=== PATIENT | male | born 1935 | race Caucasian/White ===

== ENCOUNTER 2017-03-31 10:37 | Observation (INO) | payer BC ==
--- NOTE | ~2017-03-31 | DS ---
Discharge Summary [facility] [address] [facility] [place]. [address] NAME: RICHA LUX : 35 STATUS : DIS Michel PAT#: [id number] AGE: 82 ADM/REG DATE : 03/31/17 MR#: [id number] REPORT SERV DATE: 04/02/17 DICTATED BY: JR. CABRAL WILLIAM JOHN DATE: 04/01/17 REPORT STATUS : Draft TRANSCRIBED BY: MODL DATE: 04/01/17 ADMISSION DATE: 03/31/2017 DISCHARGE DATE: 04/01/2017 DISCHARGE DIAGNOSES: Include: 1. 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 2. Carotid stenosis with category 3 disease on the right, category 1 on the left. 3. Uncontrolled hypertension. 4. Benign prostatic hypertrophy. 5. Peripheral vascular disease. 6. Coronary artery disease with history of bypass grafting. 7. Acute kidney injury. OPERATIONS, PROCEDURES, AND TREATMENTS: Include: 1. Echocardiogram done on 03/31/2017, which showed normal left ventricular size with preserved ejection fraction of 50% to 55% with mild diastolic dysfunction, moderate left atrial enlargement, normal right ventricular size and function. There is aortic valve sclerosis without stenosis and a negative bubble study. 2. CT of the brain done on 03/31/2017 showed atrophy without evidence of acute infarct. There were some deep white matter changes, likely old. 3. Carotid flow study done on 03/31/2017, which showed category 3 disease on the right, category 1 disease on the left. 4. Chest x-ray done on 03/31/2017, which showed clear lungs. 5. MRI of the brain done on 03/31/2017, which showed completed TIA/ acute punctate lacunar infarct in the right basal ganglia. CONSULTING PHYSICIAN: Dr. Krause of Neurology. DISCHARGE MEDICATIONS: Not applicable as the patient left against medical advice. HOSPITAL COURSE: The patient was an 82-year-old male, reportedly in good health. He has been working outside [place]. At around 4 o'clock in the morning, felt leg cramp. He woke up, left side of his face was drooped. Speech was somewhat dysarthric. He called his son, who brought him to the hospital. He denied any weakness or difficulty walking. On initial exam, blood pressure was 182/84, heart rate 59, temperature 97.1, respiratory rate of 16. Exam was remarkable for left facial droop with mild asthenia of the face. No peripheral symptoms, otherwise normal. Initial CT is as detailed above. For complete details, see Dr. Christian's excellent dictated history and physical. The patient was admitted to the hospital for suspected stroke. He was seen by Neurology; recommended MRI, echocardiogram, MRA of the head, carotid flow study. The patient was absolutely adamant that he was going to go home today. I saw the patient this morning. The MRI, carotid flow study, and echocardiogram were all pending at that time. I discussed the case with Neurology, who agreed to come and see him in the afternoon. In the interim, the above results were completed. We discussed at length with the patient the risks of going home. We felt it was imperative that the patient have further workup and evaluation by Discharge Summary [address] [address] NAME: RICHA LUX : 35 STATUS : DIS Michel PAT#: [id number] AGE: 82 ADM/REG DATE : 03/31/17 MR#: [id number] REPORT SERV DATE: 04/02/17 DICTATED BY: JR. CABRAL WILLIAM JOHN DATE: 04/01/17 REPORT STATUS : Draft TRANSCRIBED BY: TERESA DATE: 04/01/17 Vascular Surgery. The patient declined any further care and chose to sign out against medical advice. I personally saw the patient 3 times today and Neurology saw him once. Unfortunately, the patient left against medical advice. He plans to see Dr. Martin of Vascular Surgery on Monday. For discharge exam and laboratory, please see the daily progress note. This discharge took greater than 30 minutes for patient encounter, coordination of care, and documentation. DICTATED BY: Дмитрий Cabral Jr, MD WLAUREN/TERESA Дмитрий Cabral Jr, MD / [id number] CC: Дмитрий Cabral Jr, MD
--- NOTE | ~2017-03-31 | HP ---
History And Physical [id number] [place]. [address] NAME: RICHA LUX : 35 STATUS : ADM Michel PAT#: [id number] AGE: 82 ADM/REG DATE : 03/31/17 MR#: [id number] REPORT SERV DATE: 03/31/17 DICTATED BY: TIMA CHRISTIAN DATE: 03/31/17 REPORT STATUS : Draft TRANSCRIBED BY: MODMarcy DATE: 03/31/17 DATE OF ADMISSION: 03/31/2017 CHIEF COMPLAINT: Face drooping. HISTORY OF PRESENT ILLNESS: The patient is an 82-year-old white male, who is reportedly in good health. He has currently been working outside of [place]. He said around 4 o'clock he felt a leg cramp and he had to wake up. When he woke up, he noticed that the left side of his face was drooping and his speech was somewhat dysarthric. He called his son and his son brought him to the hospital. He denied any weakness in the upper extremity nor in the lower extremity or the torso. He said he was able to walk without any difficulty. He denied any nausea or vomiting. He denied any palpitations, chest pain, or shortness of breath. He denied any headaches or visual disturbance. When he came to the emergency room, he was noted to have the above complaint. CT done in the emergency room was negative for any acute bleed, so Medicine Service was asked to see the patient and evaluate the patient. He is already outside the window of using tPA, so Neurology and Stroke Alert was not called. REVIEW OF SYSTEMS: A 14-point review of systems is otherwise negative. 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 PAST SURGICAL HISTORY: Significant for quadruple coronary artery bypass graft and lumbar spine surgery. He has had bilateral carotid endarterectomy. ALLERGIES: NO KNOWN DRUG ALLERGIES. HOME MEDICATIONS: Lisinopril 2.5 mg once daily, Lozol 1.5 mg once daily, Coreg 6.25 mg twice daily, Cardura 4 mg once daily, aspirin 81 mg once daily, Neurontin two tablets once daily, vitamin C 50, hydrocodone 5/325 one tablet every six hours p.r.n., and hydrocortisone ointment. SOCIAL HISTORY: He occasionally chews tobacco and occasionally uses alcohol. He does not use any illicit substances. 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 FAMILY HISTORY: Father with throat cancer. Brother with throat cancer. Mother with high blood pressure. No history of CVA in the family. PHYSICAL EXAMINATION: GENERAL: White male, lying on the gurney, appears to be in no obvious respiratory distress. He is awake and alert. He is oriented. VITAL SIGNS: Blood pressure 182/84, pulse of 59, temp of 97.1, respirations of 16, saturation of 96% on room air. HEENT: Head is normocephalic, atraumatic. Pupils are equal, round, and reactive to light. Extraocular muscles are intact. Sclerae are anicteric. Conjunctivae are normal. History And Physical [address] [address] NAME: RICHA LUX : 35 STATUS : ADM Michel PAT#: [id number] AGE: 82 ADM/REG DATE : 03/31/17 MR#: [id number] REPORT SERV DATE: 03/31/17 DICTATED BY: TIMA CHRISTIAN. DATE: 03/31/17 REPORT STATUS : Draft TRANSCRIBED BY: TERESA DATE: 03/31/17 Oropharynx without lesion. Tongue protrusion is midline. Uvula midline. Left facial droop is noted. He is able to raise his left eyebrow without any difficulty. He is also able to close his left eye without any difficulty. NECK: Supple. No evidence of jugular venous distention. No carotid bruits or thyromegaly appreciated. Bilateral CEA scars are noted. HEART: Regular rate and rhythm. No murmurs, rubs, or gallops. PMI nondisplaced. LUNGS: Clear to auscultation both anteriorly and posteriorly, without rales, rhonchi, wheezing, or consolidation. ABDOMEN: Soft, nontender, good bowel sounds. No rebound or guarding. No organomegaly. EXTREMITIES: Without cyanosis, clubbing, or edema. NEUROLOGIC: Except for the left facial droop and mild asthenia of the face, he has no peripheral symptoms. Strength is equal and symmetrical in both upper and lower extremities proximally and distally. Proprioception is normal. Normal graphesthesia is noted as well. Deep tendon reflexes are normal as well. LABORATORY DATA: Sodium 137, potassium 3.8, chloride 103, bicarb 29, BUN 32, creatinine 1.75, and glucose is 115. Liver function studies are normal. Proteins are normal. Troponin is less than 0.02. White count is 5.6, hemoglobin of 13.3, hematocrit of 40, platelet count is 126,000. No left shift. PT/INR and PTT are all normal. IMAGING: Portable chest x-ray: Lungs are clear of acute pathology. CT of brain noncontrasted: Atrophy, no evidence of an acute infarction seen here. There are some deep white matter changes and basal ganglia changes, which are probably old. If symptoms persist, recommend a followup MRI. Echocardiogram done on March 15 shows a borderline left ventricular systolic function of 46%, borderline left ventricular hypertrophy, left ventricular diastolic dysfunction with left atrial dilatation, right ventricle systolic function borderline reduced. No significant valvular dysfunction and no significant change when compared to 08/10/2012. EKG is still pending. IMPRESSION: 1. Left-sided facial CVA, acute, possible embolic in nature given the history of cardiac arrhythmias. Recent echo was negative, however, a repeat echo must be done to evaluate development of a thrombus. 2. Hypertension. 3. Cardiac arrhythmia. 4. Benign prostatic hypertrophy. 5. Peripheral vascular disease. 6. Coronary artery disease, status post CABG. 7. Acute kidney injury with a creatinine of 1.7. PLAN: The patient will be admitted. Aspirin and Lipitor will be started. Consider using Aggrenox if there are significant findings on the intracranial MRA. Neurology consultation will be obtained. MRI and MRA of the brain, telemetry will be used. IV fluids will be given, monitor creatinine again in the morning. Physical therapy consultation will probably not be needed because of patient's low needs for rehab. Speech therapy consultation, however, would be appropriate for assessment because of the significant left facial droop. The patient remains a full code. History And Physical [address] [place]. [address] NAME: RICHA LUX : 35 STATUS : ADM Michel PAT#: [id number] AGE: 82 ADM/REG DATE : 03/31/17 MR#: [id number] REPORT SERV DATE: 03/31/17 DICTATED BY: TIMA CHRISTIAN DATE: 03/31/17 REPORT STATUS : Draft TRANSCRIBED BY: TERESA DATE: 03/31/17 SV/MODL Tima Christian M.D. / [id number] CC: Cesia Wiseman MD UNKNOWN Дмитрий Doran M.D.
--- NOTE | ~2017-03-31 | CN ---
Consultation Report [facility] [address] [place]. [address] NAME: RICHA LUX : 35 STATUS : DIS Michel PAT#: [id number] AGE: 82 ADM/REG DATE : 03/31/17 MR#: [id number] REPORT SERV DATE: 04/01/17 DICTATED BY: TAMARA GIORDANO DATE: 04/01/17 REPORT STATUS : Draft TRANSCRIBED BY: MODMarcy DATE: 04/01/17 DATE OF CONSULTATION: 03/31/2017 CONTINUATION: PAST MEDICAL HISTORY: Remote smoking and occasional alcohol. MEDICATIONS: Vitamin C 500 mg daily, aspirin 81 mg daily, vitamin B tablet one daily, Coreg 6.25 mg twice a day, Cardura 4 mg at bedtime, Neurontin 300 mg twice a day, [place]ilo 5/325 mg q.6 hours p.r.n., hydrocortisone ointment topically daily, indapamide 1.25 mg daily, and Prinivil 2.5 mg at bedtime. ALLERGIES: CODEINE AND PLAVIX. SOCIAL HISTORY: The patient is . He has two sons. He also has some stepsons and daughters. 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 He is a remote smoker. Occasionally drinks alcohol. FAMILY HISTORY: The patient's mother . She had hypertension. Dad from throat cancer. He has one brother who has throat cancer. REVIEW OF SYSTEMS: Please refer to HPI. PHYSICAL EXAMINATION: GENERAL: The patient is an 82-year-old male who is alert, he is oriented x4, communicates appropriately. He is dysarthric; however, he does not have any anomia (receptive or expressive). NEUROLOGICAL: Pupils are 3 mm. PERRLA. Cranial nerves 2 through 12 are intact except he does have a significant left facial droop. Obqzxz-hm-zvon, no ataxia. Vojw-ny-iydt, no ataxia. He does have a slight pronator drift on the left compared to the right. No tremor. No asterixis or dysmetria. Upper extremity strength is 5/5 bilaterally. Upper DTRs 1+ bilaterally. No reported sensory deficits. Lower extremity strength 5/5 bilaterally. Patellar reflexes 1+ bilaterally. Downgoing toes. No reported sensory deficits. Gait is without ataxia. He cannot tandem, but Romberg is negative. NECK: No carotid bruits, JVD, or thyromegaly. CHEST: Lung sounds are clear. CARDIAC: Regular rate and rhythm. LABORATORY DATA: CBC is normal. BMP relatively normal, but his BUN is 32 and creatinine 1.75. INR 1.2. Chest x-ray, no acute changes. CT of the brain, no acute changes. NIH stroke scale of 2. ASSESSMENT/PLAN: 1. Probable stroke in the right middle cerebral artery territory with resultant left Consultation Report [address] [address] NAME: RICHA LUX : 35 STATUS : DIS Michel PAT#: [id number] AGE: 82 ADM/REG DATE : 03/31/17 MR#: [id number] REPORT SERV DATE: 04/01/17 DICTATED BY: TAMARA GIORDANO DATE: 04/01/17 REPORT STATUS : Draft TRANSCRIBED BY: TERESA DATE: 04/01/17 facial droop and dysarthria. At this point, the patient's aspirin will be stopped. He will be placed on Aggrenox one b.i.d. He is intolerant to Plavix. He will be placed on Lipitor 80 mg at bedtime, and MRI of the brain without gadolinium will be ordered. He will also undergo a carotid duplex study and an echocardiogram if he has not had one recently. Speech Therapy will be consulted and Case Management. Additional lab work will be drawn. 2. History of arrhythmia, type unknown. We will obtain records from Dr. Doran's office and progress from there. If he does have a history of atrial fibrillation, we certainly will consider stopping the Aggrenox and placing him on Eliquis if indeed the patient has had a stroke as evidenced by the MRI. Thank you again for including us in consultation. DORCAS/TERESA Tamara Giordano DNP, [facility] / [id number] CC: Дмитрий Cabral Jr, MD William Warren, M.D. Iwayemi O. Olayeye, MD
--- NOTE | ~2017-03-31 | CN ---
Consultation Report [facility] [address] [place]. [address] NAME: RICHA LUX : 35 STATUS : DIS Michel PAT#: [id number] AGE: 82 ADM/REG DATE : 03/31/17 MR#: [id number] REPORT SERV DATE: 04/03/17 DICTATED BY: TAMARA GIORDANO DATE: 04/01/17 REPORT STATUS : Draft TRANSCRIBED BY: MODL DATE: 04/01/17 CONSULTATION DATE OF CONSULTATION: 03/31/2017 REASON FOR CONSULTATION: Probable stroke. PRIMARY CARE PHYSICIAN: The patient's PCP is in [place], [place]. HOSPITALIST: Dr. Wiseman. CONTRACT PROCESSOR: Dr. Doran. HISTORY OF PRESENT ILLNESS: The patient is an 82-year-old male, who awoke at 3 a.m. in the morning because his legs were cramping. He walked into the bathroom and noticed that he had a significant left facial droop. He also noticed that his speech was slurred. He was concerned that he may have had a stroke, so he came to [facility]'s emergency department for further evaluation and treatment. He was evaluated and again it was thought that he may have had an acute stroke. Consequently, he was admitted to [facility], which is the stroke unit. PAST MEDICAL HISTORY: Cardiac dysrhythmia (probable atrial fibrillation), BPH, peripheral vascular disease, coronary artery disease, and neuropathy. PAST SURGICAL HISTORY: Coronary artery bypass grafting. HOME MEDICATION LIST: Includes vitamin C 500 mg daily, aspirin 81 mg daily, vitamin B one tablet daily, Coreg 6.25 mg b.i.d., Cardura 4 mg at bedtime, Neurontin 300 mg b.i.d., [place] 5/325 mg q.6 hours p.r.n., hydrocortisone ointment 1% applied topically daily, indapamide 1.25 mg daily, and Prinivil bedtime. MEDICATIONS: Vitamin C 500 mg daily, aspirin 81 mg daily, vitamin B tablet one daily, Coreg 6.25 mg twice a day, Cardura 4 mg at bedtime, Neurontin 300 mg twice a day, [place] 5/325 mg q.6 hours p.r.n., hydrocortisone ointment topically daily, indapamide 1.25 mg daily, and Prinivil 2.5 mg at bedtime. ALLERGIES: CODEINE AND PLAVIX. SOCIAL HISTORY: The patient is . He has two sons. He also has some stepsons and daughters. 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 He is a remote smoker. Occasionally drinks alcohol. FAMILY HISTORY: The patient's mother . She had hypertension. Dad from throat cancer. He has one brother who has throat cancer. Consultation Report [address] [place]. [address] NAME: RICHA LUX : 35 STATUS : DIS Michel PAT#: [id number] AGE: 82 ADM/REG DATE : 03/31/17 MR#: [id number] REPORT SERV DATE: 04/03/17 DICTATED BY: TAMARA GIORDANO DATE: 04/01/17 REPORT STATUS : Draft TRANSCRIBED BY: TERESA DATE: 04/01/17 REVIEW OF SYSTEMS: Please refer to HPI. PHYSICAL EXAMINATION: GENERAL: The patient is an 82-year-old male who is alert, he is oriented x4, communicates appropriately. He is dysarthric; however, he does not have any anomia (receptive or expressive). NEUROLOGICAL: Pupils are 3 mm. PERRLA. Cranial nerves 2 through 12 are intact except he does have a significant left facial droop. Kgjpti-no-tfkj, no ataxia. Kndf-oi-khtv, no ataxia. He does have a slight pronator drift on the left compared to the right. No tremor. No asterixis or dysmetria. Upper extremity strength is 5/5 bilaterally. Upper DTRs 1+ bilaterally. No reported sensory deficits. Lower extremity strength 5/5 bilaterally. Patellar reflexes 1+ bilaterally. Downgoing toes. No reported sensory deficits. Gait is without ataxia. He cannot tandem, but Romberg is negative. NECK: No carotid bruits, JVD, or thyromegaly. CHEST: Lung sounds are clear. CARDIAC: Regular rate and rhythm. LABORATORY DATA: CBC is normal. BMP relatively normal, but his BUN is 32 and creatinine 1.75. INR 1.2. Chest x-ray, no acute changes. CT of the brain, no acute changes. NIH stroke scale of 2. ASSESSMENT/PLAN: 1. Probable stroke in the right middle cerebral artery territory with resultant left facial droop and dysarthria. At this point, the patient's aspirin will be stopped. He will be placed on Aggrenox one b.i.d. He is intolerant to Plavix. He will be placed on Lipitor 80 mg at bedtime, and MRI of the brain without gadolinium will be ordered. He will also undergo a carotid duplex study and an echocardiogram if he has not had one recently. Speech Therapy will be consulted and Case Management. Additional lab work will be drawn. 2. History of arrhythmia, type unknown. We will obtain records from Dr. Doran's office and progress from there. If he does have a history of atrial fibrillation, we certainly will consider stopping the Aggrenox and placing him on Eliquis if indeed the patient has had a stroke as evidenced by the MRI. Thank you again for including us in consultation. DORCAS/TERESA Tamara Giordano DNP, [facility] / [id number] Consultation Report [address] [address] NAME: RICHA LUX : 35 STATUS : DIS Michel PAT#: [id number] AGE: 82 ADM/REG DATE : 03/31/17 MR#: [id number] REPORT SERV DATE: 04/03/17 DICTATED BY: TAMARA GIORDANO DATE: 04/01/17 REPORT STATUS : Draft TRANSCRIBED BY: TERESA DATE: 04/01/17 CC: Дмитрий Cabral Jr, MD
[2017-03-31 10:57] LABS: BASOPHILS 0.4 %; BASOPHILS ABSOLUTE 0.02 10/3/uL (0.0-0.16); EOSINOPHILS 2.1 %; EOSINOPHILS ABSOLUTE 0.12 10/3/uL (0.0-0.53); ER CBC TAT 0 Hrs 03 Mins; HEMATOCRIT 40.2 % (40.0-51.0); HEMOGLOBIN 13.3 g/dL (13.6-17.8); LYMPHOCYTES 13.5 %; LYMPHOCYTES ABSOLUTE 0.76 10/3/uL (0.67-4.30); MEAN CORPUS HGB CONC 33.1 g/dL (32.0-36.0); MEAN CORPUSCULAR HEMOGLOB 28.5 pg (26.0-34.0); MEAN CORPUSCULAR VOLUME 86.1 fL (80-100); MEAN PLATELET VOLUME 10.5 fL (9.2-13.0); MONOCYTES 6.8 %; MONOCYTES ABSOLUTE 0.38 10/3/uL (0.21-1.20); NEUTROPHILS 77.2 %; NEUTROPHILS ABSOLUTE 4.33 10/3/uL (2.02-8.40); RED CELL COUNT 4.67 10/6/uL (4.7-6.1); WHITE BLOOD CELLS 5.6 10/3/uL (4.5-10.5)
[2017-03-31 10:58] LABS: MANUAL DIFF NO %; PLATELET COUNT 126 10/3/uL (150-400)
[2017-03-31 11:04] LABS: INTERNATIONAL NORMAL RATI 1.2 UNITS (-); PARTIAL THROMBO TIME 34.3 SEC (22.5-37.2); PROTIME (NOT ORD) 14.6 SEC (12.0-14.5)
[2017-03-31 11:14] LABS: ALBUMIN 3.6 G/DL (3.5-5.0); ALKALINE PHOSPHATASE 62 U/L (45-117); BUN (BLOOD UREA NITROGEN) 32 MG/DL (6-23); CALCIUM, SERUM 8.8 MG/DL (8.5-10.4); CHLORIDE, SERUM 103 MMOL/L (96-112); CO2 (CARBON DIOXIDE) 29 MMOL/L (24-34); CREATININE 1.75 MG/DL (0.70-1.30); GFR AFRICAN AMERICAN 41 ML/MIN (>=60); GFR NON AFRICAN AMERICAN 35 ML/MIN (>=60); GLOBULIN 3.5 G/DL (2.5-4.1); GLUCOSE, SERUM 115 MG/DL (60-99); POTASSIUM, SERUM 3.8 MMOL/L (3.5-5.3); SGOT(AST) 24 U/L (5-40); SGPT(ALT) 24 U/L (5-65); SODIUM, SERUM 137 MMOL/L (135-148); TOTAL BILIRUBIN 0.5 MG/DL (0-1.2); TOTAL PROTEIN 7.1 G/DL (6.0-8.5); TROPONIN I <0.02 NG/ML (<0.05)
[2017-03-31] MEDS ORDERED: PRIN2.5 PO (11:42)
[2017-03-31] MEDS ORDERED: INDAPAMIDE1.25 MG PO (11:42)
[2017-03-31] MEDS ORDERED: NORCO1 TA1 PO (11:43)
[2017-03-31] MEDS ORDERED: COREG6 PO ×2 (11:43→11:44)
[2017-03-31] MEDS ORDERED: CARDU4 PO (11:43)
[2017-03-31] MEDS ORDERED: ASAB PO (11:43)
[2017-03-31] MEDS ORDERED: NEUR300 PO (11:44)
[2017-03-31] MEDS ORDERED: VITAMIN B PO (11:44)
[2017-03-31] MEDS ORDERED: VITC500 PO (11:44)
[2017-03-31] MEDS ORDERED: HYDROCORTISONE30 G4 TOP (11:45)
[2017-03-31 16:17] LABS: CHOLESTEROL 170 MG/DL (< 200); TRIGLYCERIDE 146 MG/DL (< 150)
[2017-03-31 16:29] LABS: CHOL/HDL RATIO(NOT ORDER) 5.3 (0-5); HDL CHOLESTEROL 32 MG/DL (> 39); LDL CHOLESTEROL 109 MG/DL (< 130); NON-HDL CHOLESTEROL 138 MG/DL (< 160)
[2017-03-31 18:43] LABS: CK-MB 2.3 NG/ML; CPK 107 U/L (0-200); TROPONIN I 0.02 NG/ML (<0.05)
[2017-04-01 02:55] LABS: CPK 103 U/L (0-200); TROPONIN I 0.02 NG/ML (<0.05)
[2017-04-01 12:37] LABS: CPK 112 U/L (0-200); TROPONIN I 0.03 NG/ML (<0.05)
[2017-04-01 12:38] LABS: CK-MB 2.1 NG/ML
[2017-04-01] MEDS ORDERED: AGGRENOX PO (16:25)
[2017-06-02] MEDS ORDERED: ASAB PO (10:44)
[2017-06-02] MEDS ORDERED: CARDU4 PO (10:44)
[2017-06-02] MEDS ORDERED: ICAPS AREDS SO1 EACH PO (10:46)
[2017-06-02] MEDS ORDERED: BRILINTA90 MG PO (10:48)
[2017-06-02] MEDS ORDERED: ZANTAC 75 PO (11:15)
== END 2017-04-01 17:03 | disposition home or self-care (01) ==
LOC: ER 10:37 → 1SO 13:30
PROVIDERS: Hospitalist; Internal Medicine
DX: I63.8 Other cerebral infarction (principal); R29.810 Facial weakness; I65.23 Occlusion and stenosis of bilateral carotid arteries; I10 Essential (primary) hypertension; N40.0 Benign prostatic hyperplasia without lower urinary tract symptoms; I73.9 Peripheral vascular disease, unspecified; I25.10 Atherosclerotic heart disease of native coronary artery without angina pectoris; N17.9 Acute kidney failure, unspecified; Z95.1 Presence of aortocoronary bypass graft; Z98.890 Other specified postprocedural states; Z82.49 Family history of ischemic heart disease and other diseases of the circulatory system; Z80.8 Family history of malignant neoplasm of other organs or systems; Z88.5 Allergy status to narcotic agent; Z88.8 Allergy status to other drugs, medicaments and biological substances; Z79.82 Long term (current) use of aspirin; Z79.52 Long term (current) use of systemic steroids; Z79.899 Other long term (current) drug therapy
CPT/HCPCS: 70450; 70551; 71010; 80053; 80061; 82550; 82553; 83036; 84484; 85025; 85610; 85730; 92523-GN; 92610-GN; 93005; 93306; 93880; 96372; 99285; A9270-GY; G0378